=== PATIENT | male | born 1970 | race Caucasian/White ===

== ENCOUNTER 2016-05-15 21:08 | Emergency (ER) | payer MEDICARE ==
[~2016-05-15] VITALS: Ht 180.3 cm; Wt 113.6 kg
[~2016-05-15 21:08] MED LIST: DIVA125T2 PO; INSU100V4 SUBQ; OMEP20TA86 PO; ONDA8TAB10 PO; RISP2TAB3 PO
[2016-05-15 21:15] VITALS: BP 139/94; PULSE 108; RESP 18; O2SAT 95
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
== END 2016-05-15 23:55 | disposition left against medical advice (07) ==
LOC: SED 21:08
DX: K08.89 Other specified disorders of teeth and supporting structures (principal); Z53.21 Procedure and treatment not carried out due to patient leaving prior to being seen by health care provider